=== PATIENT | male | born 1950 | race Caucasian/White ===

== ENCOUNTER → 2020-06-24 | Outpatient (CLI) | payer MEDICARE, OTHER ==
[~2020-06-24] MED LIST: ASPIRIN CHEWABL81 MG PO; BRILINTA 90 MG90 MG PO; IMDUR ER TAB 3030 MG PO; LIPITOR TAB 2020 MG PO; LOPRESSOR 25 MG25 MG PO; NITROSTAT0.4 MG SL; PROTONIX40 MG PO; RESTORIL15 MG PO; ZESTRIL2.5 MG PO; ZYRTEC10 MG PO
== END ==
LOC: ECHO 09:00
DX: I25.10 Atherosclerotic heart disease of native coronary artery without angina pectoris (principal); I48.91 Unspecified atrial fibrillation; I70.0 Atherosclerosis of aorta; I51.7 Cardiomegaly
CPT/HCPCS: ECHO; 93306